=== PATIENT | female | born 1985 | race Caucasian/White ===

== ENCOUNTER 2024-02-03 09:39 | Outpatient (CLI) | payer MEDICAID ==
[~2024-02-03 09:39] MED LIST: CETI5TAB27 PO; LOSA1TAB36 PO; NORG1TAB12 PO; SEMA1PEN3 SQ
== END 2024-02-03 23:59 | disposition home or self-care (01) ==
LOC: MRI 09:39
PROVIDERS: ATTEND Family Medicine
DX: N80.03 Adenomyosis of the uterus (principal); N92.6 Irregular menstruation, unspecified; M51.36 Other intervertebral disc degeneration, lumbar region; M47.816 Spondylosis without myelopathy or radiculopathy, lumbar region; M43.17 Spondylolisthesis, lumbosacral region
CPT/HCPCS: 72195

== ENCOUNTER 2025-03-23 17:18 | Emergency (ER) | payer MEDICAID ==
[~2025-03-23] VITALS: Ht 160 cm; Wt 95.5 kg
[2025-03-23 17:21] VITALS: BP 136/92; PULSE 96; RESP 16; O2SAT 99
[2025-03-23] MEDS ORDERED: IBUP-864 PO (17:31)
[2025-03-23] MEDS ORDERED: AMOX-117 PO (17:31)
--- NOTE | 2025-03-23 17:31 | Physician Documentation ---
HPI ~ General Chief Complaint: Tooth Problem Stated Complaint: TOOTH PAIN Time Seen by MD: 17:28 Source: patient Mode of Arrival: POV Exam Limitations: no limitations History of Present Illness HPI Comment 39-year-old female with multiple missing teeth partials up on the upper teeth has 1 tooth that she knows she needs to be pulled she goes to [facility] but has noticed some swelling and pain including redness she will do a walk-in to [facility] dental this coming up week but has not been able to see anyone for her tooth pain dental infection Medication Reconciliation Allergies: Coded Allergies: No Known Allergies (Unverified , 03/23/25) Scheduled Cetirizine HCl (Cetirizine HCl), 1 TAB PO DAILY, (Reported) Losartan/Hydrochlorothiazide (Losartan-Hctz 50-12.5 Mg Tab), 1 TAB PO DAILY, (Reported) Norgestimate-Ethinyl Estradiol (Sprintec 28 Day Tablet), 1 TAB PO DAILY, (Reported) Semaglutide (Ozempic), 1 MG SQ Q7D, (Reported) Past Medical History Past Medical History: No Pertinent History Past Surgical History: noncontributory Drug Use: none Lives In: Home Occupation: employed Review of Systems All Other Systems at this time: Reviewed and Negative ENT: Reports: see HPI Physical Exam Vital Signs: RN Vital Signs have been reviewed: Yes, Temperature: 98.4, Source: Temporal, Heart Rate: 96, Respiratory Rate: 16, BP: 136/92, Pulse Oximetry: 99, Weight: 95.450 Oxygen Flow Rate: 0 General Appearance: alert, WD/WN, no apparent distress EENT General Back molar to the left upper jaw with root exposed to the roof of the mouth no obvious abscess but erythema and swelling to the gumline partials on both sides Mouth/Throat: normal mouth inspection, pharynx normal Palate: other Teeth/Gums: carious, extruded tooth Face: normal inspection; No: swelling, tender Head: normal inspection; No: swelling Neck: non-tender, full range of motion, supple Respiratory: lungs clear, normal breath sounds, no respiratory distress Progress Results/Orders Results/Orders Vital Signs 03/23/25 17:21 Temp 98.4 Pulse 96 Resp 16 B/P (MAP) 136/92 Pulse Ox 99 O2 Flow Rate 0 Medical Decision Making Findings 39-year-old female with half avulsed tooth with swelling and erythema to the gum line poor dentition dental caries does follow up with dental but does not have an appointment antibiotics with 1st dose here prior to discharge. Patient will follow up with [facility] with dental for further treatment and evaluation of left upper back molar Departure Time of Disposition: 17:30 Disposition: 01 HOME / SELF CARE / HOMELESS Impression: Primary Impression: Toothache Condition: Stable Discharge Instructions: Dental Caries, Adult Additional Instructions: Follow up with [facility] dental take antibiotics as prescribed and follow up EJ Referrals: NO PRIMARY CARE PROVIDER (PCP) Prescriptions Ibuprofen (Ibu) 800 Mg Tablet 1 TAB PO Q8H for 7 Days, #21 TAB 0 Refills Prov: WENDI NY NP 03/23/25 Amox Tr/Potassium Clavulanate (Augmentin 875-125 Tablet) 1 Each Tablet 1 TAB PO Q12H for 10 Days, #20 TAB Prov: WENDI NY NP 03/23/25 Education Educated: Patient Educated regarding: diagnosis, prognosis, need for follow up Signature Scribe Signature: No scribe Attestation: The note accurately reflects work and decisions made by me.Wendi VEGAS 03/23/25 17:31 WENDI NY NP Mar 23, 2025 17:31
[2025-03-23] MEDS: amox tr/potassium clavulanate 875/125mg TAB PO ONE (17:59)
[2025-03-23 18:00] VITALS: TEMP 98.4
== END 2025-03-23 18:02 | disposition home or self-care (01) ==
LOC: ER 17:18
DX: K08.89 Other specified disorders of teeth and supporting structures (principal); Z79.899 Other long term (current) drug therapy
CPT/HCPCS: 99283